=== PATIENT | male | born 1955 | race Caucasian/White ===

== ENCOUNTER 2022-03-03 10:01 | Emergency (ER) | payer OTHER ==
[~2022-03-03] VITALS: Ht 193 cm; Wt 95.2 kg
[2022-03-03] MEDS ORDERED: LIPITOR20 MG PO (11:15)
[2022-03-03] MEDS ORDERED: CITALOPRAM HBR20 MG PO (11:16)
[2022-03-03] MEDS ORDERED: VITAMIN B-121000 MCG PO (11:16)
[2022-03-03] MEDS ORDERED: METFORMIN HCL500 MG PO (11:17)
[2022-03-03] MEDS ORDERED: LISINOPRIL40 MG PO (11:17)
== END 2022-03-03 12:22 | disposition home or self-care (01) ==
LOC: ED 10:01
DX: M79.651 Pain in right thigh (principal); I10 Essential (primary) hypertension; Z79.84 Long term (current) use of oral hypoglycemic drugs; Z79.899 Other long term (current) drug therapy
CPT/HCPCS: 70450; 99284-25